=== PATIENT | male | born 1970 | race Caucasian/White ===

== ENCOUNTER → 2017-11-17 | Outpatient (CLI) | payer OTHER ==
[~2017-11-17] MED LIST: ATIVAN1 MG PO
[2017-11-17 14:35] LABS: BUN 11 mg/dl (7-24); CHLORIDE 105 mmol/L (98-107); POTASSIUM 4.8 mmol/L (3.5-5.1); SODIUM 140 mmol/L (136-145)
[2017-11-17 14:38] LABS: CHOLESTEROL 158 mg/dL (<200); HDL CHOLESTEROL 28 mg/dl (40-60); LDL CHOLESTEROL 104 mg/dL (9-159); VLDL CHOLESTEROL 26 mg/dL (6-40)
[2017-11-17 14:43] LABS: TRIGLYCERIDES 130 mg/dl (<150)
== END | disposition home or self-care (01) ==
LOC: LAB 14:01
PROVIDERS: Family Medicine
DX: I10 Essential (primary) hypertension (principal); R73.01 Impaired fasting glucose

== ENCOUNTER → 2018-01-24 | Outpatient (CLI) | payer OTHER ==
[2018-01-24 15:03] LABS: ALBUMIN 3.2 gm/dl (3.1-4.5); ALKALINE PHOSPHATASE 175 U/L (45-117); BUN 8 mg/dl (7-24); CHLORIDE 104 mmol/L (98-107); CHOLESTEROL 124 mg/dL (<200); CREATININE 0.74 mg/dL (0.70-1.30); HDL CHOLESTEROL 31 mg/dl (40-60); LDL CHOLESTEROL 74 mg/dL (9-159); POTASSIUM 4.6 mmol/L (3.5-5.1); SGOT/AST 48 IU/L (3-35); SGPT/ALT 35 U/L (12-78); SODIUM 139 mmol/L (136-145); TOTAL PROTEIN 7.7 gm/dL (6.4-8.2); TRIGLYCERIDES 94 mg/dl (<150); VLDL CHOLESTEROL 19 mg/dL (6-40)
== END | disposition home or self-care (01) ==
LOC: LAB 14:21
PROVIDERS: Family Medicine
DX: E11.9 Type 2 diabetes mellitus without complications (principal)

== ENCOUNTER → 2018-05-16 | Outpatient (CLI) | payer OTHER ==
[2018-05-16 16:49] LABS: BUN 9 mg/dl (7-24); CHLORIDE 102 mmol/L (98-107); CREATININE 0.79 mg/dL (0.70-1.30); POTASSIUM 4.6 mmol/L (3.5-5.1); SODIUM 138 mmol/L (136-145)
== END | disposition home or self-care (01) ==
PROVIDERS: Family Medicine
DX: E11.9 Type 2 diabetes mellitus without complications (principal)